=== PATIENT | male | born 1960 | race Caucasian/White ===

== ENCOUNTER 2019-03-04 12:46 | Inpatient (IN) | payer MEDICAID ==
[~2019-03-04] VITALS: Ht 180.3 cm; Wt 77.6 kg
[2019-03-04 12:50] VITALS: Ht 180.3 cm; Wt 77.6 kg
--- NOTE | 2019-03-04 13:35 | NUR ---
PT BIB SISTER TODAY WITH C/C FOR ALTERED. PT REPORTS THAT PT WAS PLACED ON ABILIFY "SHOTS" AND SINCE THEN HE BEGAN URINATING ON HIMSELF, "BEING NONVERBAL" AND "NOT ACTING RIGHT", "HE'S HITTING HIMSELF AND GAMBLING A LOT, AND BEING HYPERSEXUAL." SISTER REPORTS LONG HISTORY OF BIPOLAR DISORDER. PT'S SISTER RECENTLY BROUGHT HIM TO THE AREA TO LIVE WITH HER SO THAT SHE COULD GET A SECOND OPINION. MEANWHILE, SISTER HAS BEEN GIVING PT HER DAUGHTER'S ABILIFY RX TO HELP HELP WITH HIS "EPISODES." PT IS BLIND AND USES HEARING AIDS, WHEN SISTER GAVE PT HIS HEARING AID, HE PUT IT IN HIS MOUTH. PT'S SISTER STATED, "I WAS UNDER THE IMPRESSION THAT I COULD BRING HIM HERE AND HAVE HIM PLACED ON THAT 72-HOUR HOLD." EXPLAINED TO SISTER THE PROCESS OF A DOCTOR'S EVALUATION AND THE PROCESS OF PLACING A PT ON A 5150 HOLD. PT IS ORIENTED TO HIMSELF, AND ABLE TO TELL ME THAT HIS SISTER WAS HERE WITH HIM. PT ANSWERS SIMPLE QUESTIONS APPROPRIATELY, AND FOLLOWS COMMANDS APPROPRIATELY. PT DOES NOT APPEAR TO BE EXPERIENCING ANY AUDITORY OR VISUAL HALLUCINATIONS. ASKED PT, "DO YOU HAVE THOUGHTS OF HARMING YOURSELF?" AND "DO YOU HAVE THOUGHTS OF HURTING ANYONE ELSE?" PT REPLIED "NO" TO BOTH QUESTIONS. PT IS CALM AND COOPERATIVE, RESP E/U, NAD NOTED. AWAITING MSE.
[2019-03-04 14:21] LABS: BASOPHIL % 0.3 % (0-2); PLATELET COUNT 203 x10^3mcL (130-400); RED CELL DISTRIBUTION WIDTH 14.3 % (11.5-14.5)
--- NOTE | 2019-03-04 14:22 | NUR ---
AGENCY DOCUMENTATION DONE BY Staff Name/Title - : [address] JR/NATHANAEL [employer] User ID - : [id number] Agency Name - : [employer] Time Documented - From - : 699 To - : 1929
--- NOTE | 2019-03-04 14:23 | NUR ---
ASSUMED PATIENT CARE, CONCUR WITH PREVIOUS ASSESSMENTS.
[2019-03-04 14:32] LABS: CALCIUM 8.4 mg/dL (8.5-10.1); CARBON DIOXIDE 33.1 mmol/L (21-32); CHLORIDE SERUM 105 mmol/L (98-107); CREATININE SERUM 1.2 mg/dL (0.7-1.3); GFR1 > 60 mL/min; GLUCOSE SERUM 169 mg/dL (74-106); POTASSIUM SERUM 4.1 mmol/L (3.5-5.1); SODIUM SERUM 144 mmol/L (136-145)
[2019-03-04 14:44] LABS: microscopic required? YES; urine erythrocyte TRACE (NEGATIVE)
[2019-03-04 14:53] LABS: AMPHETAMINE QUAL UR NONE DETECTED (See below)
--- NOTE | 2019-03-04 18:23 | NUR ---
CURRENTLY AWAITING TELEPSYCH CONSULT. PER DIPPING MACHINE OPERATOR PATIENT IS ON THE LIST BUT TELEPSYCH IS BUSY AT THIS TIME. WILL CONTINUE TO MONITOR PATIENT, MEAL AND JUICES PROVIDED.
--- NOTE | 2019-03-04 19:15 | NUR ---
PATIENT SEEN SITTING IN THE BED WITH A VAGUE STARE, DOES NOT VERBALIZE, STATE HIS NAME WHEN ASKED.
--- NOTE | 2019-03-04 19:45 | NUR ---
TELE-PSYCH MD TRIED TO TALK TO THE PATIENT, PATIENT STSTE NAME WHEN ASKED, BUT KEPT STARING AT THE SCREEN AND IS NOT TALKING.
--- NOTE | 2019-03-04 20:18 | NUR ---
VITAL SIGNS RE-CHECK SAME IS STABLE , PATIENT IS STANDING IN THE HALLWAY, RE- DIRECTED TO THE ROOM. RESIDENT SEEN AT THE BEDSIDE TRYING TO TALK TO THE PATIENT.
[2019-03-04 20:33] LABS: MAGNESIUM 1.9 mg/dL (1.8-2.4)
[2019-03-04 20:34] LABS: CHOLESTEROL/HDL RATIO 3.6
--- NOTE | 2019-03-04 22:40 | NUR ---
PATIENT IS ADMITTED AND WAITING FOR A BED. PATIENT WAS GIVEN JUICE AND SANDWICH.
--- NOTE | 2019-03-04 23:20 | NUR ---
REPORT WAS GIVEN TO LOURDES.
--- NOTE | 2019-03-04 23:45 | NUR ---
PATIENT TRANSPORTED TO ROOM 236.
[2019-03-05 00:26] VITALS: BP 143/78
--- NOTE | 2019-03-05 00:58 | NUR ---
RECEIVED PT FROM ER, PT ADMIT FOR PSYCHOSIS, DEMENTIA, PT IS A/O X1, ONLY RESPOSNIVE TO NAME, LEFT EYE COMPLETE BLIND, NO REACT TO LIGHT, RIGHT EYE PARTIAL BLIND, REACT TO LIGHT [place], BUT PT ABLE TO TELL HOW MANY FINGER SHOW HIM DURING THE ASSESSMENT, [place] BOTH EARS, BUT ABLE TO FOLLOW SIMPLE COMMAND. LUNG SOUND CLEAR BILATERAL, NO COUGH, NO SOB, DENY ANY CHEST PAIN OR DISCOMFORT, BOWEL SOUND PRESENT ALL 4 QUADRANTS, NO DISTENTION, NO TENDER. PEDAL PULSE PRESENT BOTH FEET, NO EDEMA, IV AT LEFT HAND, NO LEAKING, NO INFILTRAITON. ALL ADLS ASSIST, ALL NEED MET, CALL LIGHT IN REACH, WILL CONTINUE TO MONITOR. SITTER AT BEDSIDE CLOSE TO MONITOR THE PT.
--- NOTE | 2019-03-05 01:00 | NUR ---
SPECIMEN FOR MRSA NARES COLLECTED AND SENT TO LAB. CALL LIGHT WITHIN REACH. NO S/S OF APIN/DISCOMFORT AT THIS TIME.
--- NOTE | 2019-03-05 04:40 | NUR ---
EKG RESULT IN,SEEN BY DR ARCOS, NO NER ORDERS GIVEN. NO S/S OF CHEST PAIN/DISCOMFORT. APPARENTLY COMFORTABLE IN BED.
[2019-03-05 05:49] VITALS: BP 103/65
--- NOTE | 2019-03-05 06:13 | NUR ---
APPARENTLY STILL ASLEEP. NO S/S OF PAIN/DISCOMFORT. RESPIRATION EVEN AND UNLABORED. NO S/S OF ACUTE DISTRESS.
--- NOTE | 2019-03-05 07:10 | NUR ---
RECEIVED REPORT FROM LOURDES PT IN BED IN NO ACUTE DISTRESS
--- NOTE | 2019-03-05 07:21 | NUR ---
PT IN BED, IN NO APPARENT PAIN/DISTRESS, VERBAL, ABLE TO MAKE NEEDS KNOWN, [place], BLIND TO (L) EYE, PARTIAL BLIND TO (R) EYE, NO FACIAL DROOP/SLUURED SPEECH, CALM AND COOPERATIVE AT THIS TIME, DENIED PAIN/CHAUDHARY/CP/PALPITATION, DENIED N/V/D, RESP EVEN, NO SOB/COUGH, MEDSURG, CHEST RISE SYMMETRICALLY, ABD FLAT AND NON-TENDER TO TOUCH, BS ACTIVE X 4, PALP PUSLES, CAP REFILL < 3S, SKIN C/D/W, SEE SKIN ASSESSMENT, IV PATENT AND FLUSHING WELL, DRESSING CDI, AMBULATORY, INCONTINENT AT TIME, REG DIET, ALL NEEDS ADDRESSED AT THIS TIME, SITTER 1:1 AT BEDSIDE, SAFETY PROTOCOL FOLLOWED, CONTINUE TO MONITOR
[2019-03-05 09:22] VITALS: BP 127/65
--- NOTE | 2019-03-05 11:48 | NUR ---
PT SLEEPING IN BED, IN NO ACUTE DISTRESS, SITTER AT BEDSIDE, CONTINUE TO MONITOR
--- NOTE | 2019-03-05 17:07 | NUR ---
VOID X 1, ASSISTED BACK TO BED, IN NO ACUTE DISTRESS, SITTER AT BEDSIDE, CONTINUE TO MONITOR
[2019-03-05 17:17] VITALS: BP 114/56
--- NOTE | 2019-03-05 17:55 | NUR ---
PT IN BED, PT PULLED OUT IV, IV CATH INTACT, NO ACTIVE BLEEDING NOTED, VERBAL, ABLE TO MAKE NEEDS KNOWN, IN NO ACUTE DISTRESS, RESP EVEN, NO SOB/COUGH, SITTER AT BEDSIDE, TOLERATED DINNER WELL, DENIED CP/PAIN/PALPITATION, DENIED N/V/D, SKIN C/D/W, ALL NEEDS ADDRESSED AT THIS TIME, SAFETY PROTOCOL FOLLOWED, WILL ENDROSE TO ONCOMING RN
--- NOTE | 2019-03-05 19:35 | NUR ---
RECIEVED PT RESTING AT BEDSIDE, ASSESMENT PERFORMED AT THIS TIME, PT IS A/OX1 TO PERSON, PT DENIES CHAUDHARY OR DIZZINESS AT THIS TIME, PT IS [place], AND IS BLIND IN ONE LEFT EYE AND PARTIALLY BLIND IN RIGHT, PT DENIES PAIN OR SOB AT THIS TIME, SITTER AT BEDSIDE, ALL NEEDS ATTENDED TO, SAFETY PRECAUTIONS IN PLACE, WILL CONTINUE TO MONITOR
[2019-03-05 20:14] VITALS: BP 112/57
--- NOTE | 2019-03-05 22:36 | NUR ---
PT RESTING IN BED WITH NO ACUTE DISTRESS, PT RESPONDS TO TACTILE SIMULI, PT DENIES PAIN OR SOB, SITTER AT BEDSIDE, SAFETY PRECAUTIONS IN PLACE WILL CONTINUE TO MONITOR
--- NOTE | 2019-03-06 00:43 | NUR ---
PT IN BED ON LEFT SIDE RESTING WITH EYES CLOSED, RESPIRATIONS UNLABORED, SITTER AT BEDSIDE, SAFETY PRECAUTIONS IN PLACE WILL CONTINUE TO MONITOR
--- NOTE | 2019-03-06 02:35 | NUR ---
PT RESTING IN BED WITH NO DISTRESS NOTED AT THIS TIME, PT IS RESTING ON LEFT SIDE, RESPIRATIONS EVEN AND UNLABORED, ALL NEEDS ATTENDED TO, SITTER AT BEDSIDE,SAFETY PRECAUTIONS IN PLACE, WILL COTNINUE TO MONITOR
--- NOTE | 2019-03-06 05:27 | NUR ---
PT REMAINIED IN BED THROUGH NIGHT WITH THE EXCEPTION OF AMBULATING TO THE RR TWICE TO VOID TWICE AND HAVE A BM, SITTER REMAINED AT BEDISDE THROUGH SHIFT, PT DENIED PAIN OR SOB THROUGH NIGHT, ALL NEEDS ATTENDED TO, SAFETY PRECAUTIONS IN PLACE, WILL COTNINUE TO MONITOR AMD ENDORSE CARE
[2019-03-06 05:56] VITALS: BP 130/78
--- NOTE | 2019-03-06 07:10 | NUR ---
RECEIVED REPORT FROM ISAC HUFFMAN AT BEDSIDE, PT IN BED IN NO ACUTE DISTRESS
--- NOTE | 2019-03-06 07:44 | NUR ---
PT IN BED, AWAKE, IN NO APPARENT PAIN/DISTRESS, VERBAL, ABLE TO MAKE NEEDS KNOWN, [place], BLIND TO (L) EYE, PARTIAL BLIND TO (R) EYE, NO FACIAL DROOP/SLUURED SPEECH, CALM AND COOPERATIVE AT THIS TIME, DENIED PAIN/CHAUDHARY/CP/PALPITATION, DENIED N/V/D, RESP EVEN, NO SOB/COUGH, MEDSURG, CHEST RISE SYMMETRICALLY, ABD FLAT AND NON-TENDER TO TOUCH, BS ACTIVE X 4, PALP PUSLES, CAP REFILL < 3S, SKIN C/D/W, SEE SKIN ASSESSMENT, AMBULATORY W/ ASSIST, INCONTINENT AT TIME, REG DIET, ALL NEEDS ADDRESSED AT THIS TIME, SITTER 1:1 AT BEDSIDE, SAFETY PROTOCOL FOLLOWED, CONTINUE TO MONITOR
[2019-03-06 08:05] VITALS: BP 113/73
--- NOTE | 2019-03-06 10:28 | NUR ---
PT SLEEPING IN BED, IN NO APPARENT DISTRESS/PAIN, SITTER 1:1 AT BEDSIDE, CONTINUE TO MONITOR
--- NOTE | 2019-03-06 13:47 | NUR ---
PT VISITED BY SISTER, PT IN BED IN NO ACUTE DISTRESS, SITTER AT BEDSIDE, CONTINUE TO MONITOR
--- NOTE | 2019-03-06 14:24 | NUR ---
SISTER WANTED TO TAKE PT HOME OR TO ANOTHER [facility], SISTER MADE AWARE PT WAS ON [address] SNELL, METEOROLOGICAL AIDE TIM LANDA TALKED TO SISTER, SISTER LEFT, PT IN BED IN NO ACUTE DISTRESS, CHARGE NURSE HONEY MADE AWARE
--- NOTE | 2019-03-06 17:14 | NUR ---
PT SLEEPING IN BED, IN NO APPARENT DISTRESS, NO FACIAL DROOP, RESP EVEN, NO SOB/COUGH, CHEST RISE SYMMETRICALLY, SKIN INTACT, SITTER AT BEDSIDE, ALL NEEDS ADDRESSED AT THIS TIME, SAFETY PROTOCOL FOLLOWED, WILL ENDORSE TO ONCOMING RN
[2019-03-06 17:20] VITALS: BP 107/78
[2019-03-06 19:30] VITALS: BP 120/72
--- NOTE | 2019-03-06 19:30 | NUR ---
PT RECIEVED FROM DAY NURSE. PT RESTING IN BED AT THIS TIME. DENIES PAIN OR DISCOMFORT. A/OX2, REORIENTED TO TIME AND SITUATION. PT MS, DENIES CP, NV, DIZZINESS, OR PALPATATIONS. PALPABLE PULSES, NO EDEMA NOTED. BREATHING E/U ON RA. DENIES SOB. ABD SOFT AND ROUND, DENIES PAIN TO PALPATION. GENERALIZED WEAKNESS, UP WITH ASSIST. NO IV ACCESS AT THIS TIME, PT REFUSES IV INSERTION. SITTER AT BEDSIDE. BED AT LOWEST POSITION. CALL LIGHT WITHIN REACH. WILL CONTINUE TO MONITOR.
--- NOTE | 2019-03-07 | NUR ---
PT RESTING IN BED AT THIS TIME. NO S/S OF PAIN OR DISTRESS NOTED. BREATHING E/U ON RA. NO SIGNS OF ACUTE DISTRESS NOTED AT THIS TIME. BED AT LOWEST POSITION. CALL LIGHT WITHIN REACH. WILL CONTINUE TO MONITOR.
[2019-03-07 04:50] VITALS: BP 105/55
--- NOTE | 2019-03-07 06:39 | NUR ---
PT RESTING IN BED AT THIS TIME. DENIES PAIN OR DISCOMFORT. BREATHING E/U ON RA. VSS. NO SIGNS OF ACUTE DISTRESS AT THIS TIME. ALL NEEDS AND CONCERNS ADDRESSED THIS SHIFT. BED AT LOWEST POSITION. CALL LIGHT WITHIN REACH. WILL ENDORSE TO DAY NURSE.
[2019-03-07 06:49] LABS: BASOPHIL % 0.4 % (0-2); PLATELET COUNT 193 x10^3mcL (130-400); RED CELL DISTRIBUTION WIDTH 14.4 % (11.5-14.5)
[2019-03-07 07:09] LABS: CALCIUM 8.9 mg/dL (8.5-10.1); CARBON DIOXIDE 32.3 mmol/L (21-32); CHLORIDE SERUM 104 mmol/L (98-107); CREATININE SERUM 1.3 mg/dL (0.7-1.3); GFR1 > 60 mL/min; GLUCOSE SERUM 145 mg/dL (74-106); POTASSIUM SERUM 4.3 mmol/L (3.5-5.1); SODIUM SERUM 143 mmol/L (136-145)
--- NOTE | 2019-03-07 07:30 | NUR ---
RECEIVED PATIENT IN BED WITH 1-1 BSITTER AT BEDSIDE. ALERT AND ORIENTED X 2, SLOW TO RESPONG AT TIMES. NO IV ACCESS. GENERALIZED WEAKNESS NOTED, PATIENT DOES AMBULATE WITH SLOW GAIT. RESP EVEN AND UNLABORED, LUNGS CLEAR. NO ACUTE DISTRESS NOTED. 1-1 SITTER AT BEDSIDE.
[2019-03-07 07:51] VITALS: BP 119/71
--- NOTE | 2019-03-07 13:44 | NUR ---
PATIENT REMAINS IN BED WITH 1-1 SITTER AT BEDSIDE. PATIENT CONTINUES TO EXHIBIT INAPPROPRATE BEHAVIOR. MASTURBATING AND WANTING TO KISS THE 1-1 SITTER WHO IS AT BEDSIDE. ALERT, CONFUSED. AMBULATED WITH SHIPPING ROOM HELPER IN THE HALLWAYS. TOLERATED WELL. NO CHANGE IN CONDITION NOTED.
--- NOTE | 2019-03-07 15:17 | NUR ---
Discount pharmacy card and list to low cost medical clinics given to patient by [place].
--- NOTE | 2019-03-07 15:40 | NUR ---
PATIENT IS IN BED, APPEARS TO BE RESTING. NO CHANGE IN CONDITION NOTED. 1-1 SITTER AT BEDSIDE.
[2019-03-07 15:41] VITALS: BP 113/77
--- NOTE | 2019-03-07 17:59 | NUR ---
PATIENT OOB AMBULATING WITH PAPER [place]E MACHINE TENDER IN THE HALLWAYS AT THIS TIME. NO CHANGE IN CONDITION NOTED. WILL CONTINUE TO MONITOR.
--- NOTE | 2019-03-07 19:40 | NUR ---
REC'D PT FROM DAY NURSE. PT SITTING ON CHAIR OUTSIDE THE ROOM. ORIENTED TO SELF AND PLACE. REORIENTED TO TIME AND SPECIFIC HOSPITAL. MUMBLED SPEECH. L EYE BLIND. R EYE PUPIL ROUND WITH UNEVEN EDGES AND REACTIVE TO LIGHT. ABLE TO FOLLOW COMMANDS. WITHDRAWN. MED SURG, NO TELE. NO S/SX OF CP. BREATHING EVEN/UNLABORED ON RA. ABD SOFT/FLAT/NONTENDER. VOIDING FREELY WITH EPISODES OF INCONTINENCE. MILD GEN WEAKNESS. SKIN INTACT. NO IV ACCESS. PT UNDER CLOSE OBSERVATION SITTING NEXT TO THE NURSING STATION. WILL CONTINUE TO MONITOR.
--- NOTE | 2019-03-07 20:05 | NUR ---
PT WALKING SLOWLY AROUND THE UNIT LOOKING FOR LILIA, PT'S SON. REORIENTED THAT HE IS IN THE HOSPITAL AND LILIA IS NOT CURRENTLY HERE. BROUGHT PT BACK TO CHAIR OUTSIDE HIS ROOM. PT REFUSED TO GO IN THE ROOM STATING "THAT ROOM IS DANGEROUS." PT SITTING ON THE CHAIR. PUDDING GIVEN.
[2019-03-07 20:24] VITALS: BP 130/76
--- NOTE | 2019-03-07 20:54 | NUR ---
ASSISTED PT TO BED. PT STILL LOOKING FOR LILIA. REORIENTED THE PT. CALL LIGHT WITHIN REACH, BED AT LOWEST POSITION, BED ALARM ON.
--- NOTE | 2019-03-08 00:14 | NUR ---
PT SITTING ON A CHAIR OUTSIDE HIS ROOM NEXT TO THE NURSING STATION. PT QUIET AND LOOKING AROUND. NO SIGNS OF DISTRESS. WILL CONTINUE TO MONITOR.
--- NOTE | 2019-03-08 00:24 | NUR ---
PT FALLING ASLEEP IN THE CHAIR. ASSISTED PT SAFELY BACK IN BED. CALL LIGHT WITHIN REACH, BED AT LOWEST POSITON. WILL CONTINUE TO MONITOR.
--- NOTE | 2019-03-08 02:09 | NUR ---
PT HAS BEEN GOING BACK AND FORTH BETWEEN BED AND CHAIR. PT CURRENTLY SLEEPING IN THE CHAIR. UNDER CLOSE OBSERVATION.
--- NOTE | 2019-03-08 05:10 | NUR ---
PT RESTING IN BED WITH EYES CLOSED. LAYING ON L SIDE. NO SIGNS OF DISTRESS OR PAIN NOTED. BREATHING EVEN/UNLABORED ON RA. NO SIGNIFICANT CHANGES DURING SHIFT. CALL LIGHT WITHIN REACH, BED AT LOWEST POSITION. WILL CONTINUE TO MONITOR.
[2019-03-08 05:29] VITALS: BP 123/69
--- NOTE | 2019-03-08 05:51 | NUR ---
PT AWAKE AND GETTING OUT OF BED. CHANGED INTO HIS REGULAR CLOTHES AND PUT SHOES ON. PT AWARE HE IS IN THE HOSPITAL. CURRENTLY SITTING ON A CHAIR OUTSIDE HIS ROOM NEXT TO THE NURSE'S STATION.
[2019-03-08 06:49] LABS: CARBON DIOXIDE 33.3 mmol/L (21-32); CHLORIDE SERUM 103 mmol/L (98-107); CREATININE SERUM 1.2 mg/dL (0.7-1.3); GFR1 > 60 mL/min; GLUCOSE SERUM 105 mg/dL (74-106); POTASSIUM SERUM 4.1 mmol/L (3.5-5.1); SODIUM SERUM 142 mmol/L (136-145)
[2019-03-08 06:54] LABS: BASOPHIL % 0.4 % (0-2); PLATELET COUNT 191 x10^3mcL (130-400); RED CELL DISTRIBUTION WIDTH 14.4 % (11.5-14.5)
--- NOTE | 2019-03-08 07:10 | NUR ---
RECIEIVED PT FROM NIGHT NURSE. PT IS SITTING IN BEDSIDE CHAIR IN HALLWAY NEAR NURSES STATION. PT LOOKS TO BE IN NO ACUTE DISTRESS AT THIS TIME AND DENIES ANY PAIN. NO IV ACCESS. RESPIRATIONS EVEN AND UNLABORED ON ROOM AIR. PT EASILY MONITORED FROM NURSES STATION. WILL CONTINUE TO MONITOR.
[2019-03-08 07:59] VITALS: BP 123/68
--- NOTE | 2019-03-08 10:15 | NUR ---
PT STANDING OUT FRONT OF ROOM ASKING FOR THE NURSE. PT LOOKS UPSET AND STATES THAT HE "GOOFED UP" POINTING TO THE BATHROOM. LOOKED IN BATHROOM AND NO SIGNS OF ANYTHING OF DISCORDER. PT SEEMS UPSET, REASSURED PT AND ASKED PT IF HE WOULD LIKE TO SIT IN HALLWAY ON CHAIR, PT STATED THAT HE WOULD LIKE THAT. ASSISTED PT TO CHAIR IN HALLWAY OUTSIDE OF ROOM AND COVERED PT IN BLANKET, PT STATED HE FELT BETTER AND LOOKS TO BE IN NO ACUTE DISTRESS AT THIS TIME. WILL CONTINUE TO MONITOR.
[2019-03-08 11:52] VITALS: BP 124/70
--- NOTE | 2019-03-08 12:39 | NUR ---
PT IS SITTING AT THE EDGE OF THE BED EATING. PT LOOKS TO BE IN NO ACUTE DISTRESS AND LOOKS TO HAVE NO DIFFULTY EATING. CALL LIGHT WITHIN REACH. WILL CONTINUE TO MONITOR.
--- NOTE | 2019-03-08 13:08 | NUR ---
PT SITTING IN CHAIR IN HALLWAY [facility] STATION. PT LOOKS TO BE IN NO ACUTE DISTRESS AT THIS TIME. WILL CONTINUE TO MONITOR.
--- NOTE | 2019-03-08 15:07 | NUR ---
PHYSICAL THERAPY DAILY NOTES CO-SIGN All documentation done by the Window Unit Air Conditioning Mechanic for 03/08/19 has been reviewed. I agree with the documentation. Reviewed/Co-Signed by: Adriana Arellano PT Documentation Done by:YO MCKAY PTA
[2019-03-08 16:12] VITALS: BP 131/89
--- NOTE | 2019-03-08 16:14 | NUR ---
PT SITTING IN BEDSIDE CHAIR IN HALLWAY AND LOOKS TO BE TIRED AND FALLING ASLEEP. ASKED PT IF HE WOULD LIKE TO GO BACK INTO ROOM TO GO TO SLEEP IN THE BED. PT STATED THAT HE IS AFRAID TO BE IN THE ROOM BY HIMSELF. ASKED PT IF HE WOULD FEEL BETTER IF SOMEONE WAS IN THE ROOM WITH HIM WHILE HE SLEEPS, PT STATED THAT WOULD MAKE HIM FEEL BETTER. PT MADE COMFORTABLE IN BED AND IS LAYING DOWN IN BED. NURSE AT BEDSIDE. WILL CONTINUE TO MONITOR.
--- NOTE | 2019-03-08 18:36 | NUR ---
PT IS LAYING DOWN IN BED RESTING WITH EYES CLOSED. PT LOOKS TO BE IN NO ACUTE DISTRESS AT THIS TIME. RESPIRATIONS EVEN AND UNLABORED ON ROOM AIR. BED IN LOWEST POSITION, CALL LIGHT WITHIN REACH. WILL ENDORSE TO ONCOMING SHIFT.
--- NOTE | 2019-03-08 18:43 | NUR ---
PT LIGHTS ARE OFF AND PT IS SITTING UP IN BED AND IS SHAKING HANDS AND DOING DIFFERENT HAND GESTURES. GRABBED PT'S HAND AND ASKED HIM TO SQUEEZE HAND, PT FOLLOWED COMMAND. ASKED PT IF HE KNEW WHERE HE WAS, PT REPLIED WITH HOSPITAL, PT ABLE TO STATE NAME. PT STATED HE WOULD LIKE TO SIT IN THE CHAIR IN THE HALLWAY WITH A BLANKET. ASSISTED PT TO HALLWAY. PT EASILY SEEN FROM NURSES STATION, PT LOOKS TO BE IN NO ACUTE DISTRESS AT TIME. WILL ENDORSE TO ONCOMING SHIFT.
--- NOTE | 2019-03-08 19:15 | NUR ---
RECEIVED PT FROM PREVIOUS SHIFT NURSE. PT AOX2. ORIENTED TO NAME AND PLACE. MED SURG PT, DENIES CP/PRESSURE. DENIES SOB/DIFFICULTY BREATHING, ON RA. GEN WEAKNESS. AMBULATORY, SLOW SHUFFLE. NO IV ACCESS. BED IN LOWEST POSITION. CALL LIGHT WITHIN REACH. WILL CONTINUE TO MONITOR.
[2019-03-08 21:26] VITALS: BP 131/76
--- NOTE | 2019-03-09 02:30 | NUR ---
PT RESTING IN BED. RR EVEN AND UNLABORED. IN NO ACUTE DISTRESS. CALL LIGHT WITHIN REACH. BED IN LOWEST POSITION. WILL CONTINUE TO MONITOR.
[2019-03-09 06:11] VITALS: BP 122/80
[2019-03-09 07:38] LABS: CALCIUM 9.2 mg/dL (8.5-10.1); CARBON DIOXIDE 35.4 mmol/L (21-32); CREATININE SERUM 1.4 mg/dL (0.7-1.3); POTASSIUM SERUM 4.5 mmol/L (3.5-5.1)
[2019-03-09 09:40] VITALS: BP 124/78
--- NOTE | 2019-03-09 15:11 | NUR ---
PHYSICAL THERAPY DAILY NOTES CO-SIGN All documentation done by the Person Investigator for 03/09/19 has been reviewed. I agree with the documentation. Reviewed/Co-Signed by: Adriana Arellano PT Documentation Done by:YO MCKAY PTA
[2019-03-09 16:35] VITALS: BP 109/57
--- NOTE | 2019-03-09 19:19 | NUR ---
REPORT GIVEN TO VIDEO PHOTOGRAPHER NURSE AT THE BEDSIDE, PATIENT RESTING WITH EYES CLOSED DURING REPORT, CHEST RISE AND FALL OBSERVED, CARE ENDORSED
--- NOTE | 2019-03-09 19:59 | NUR ---
PT. SLEEPING, EASY TO WAKE. ORIENTED TO SELF AND PLACE. ABLE TO FOLLOW COMMANDS. ABLE TO MAKE NEEDS KNOWN. SPEECH CLEAR, SLOW. SITTER AT BEDSIDE. PT. W/ HX OF DEMENTIA. BREATH SOUNDS CLEAR THROUGHOUT LUNG LAMA, RESP. EVEN, UNLABORED. NO SOB NOTED. PT. ON RA. PEDAL PULSES STRONG BLE. NO EDEMA NOTED. NO IV ACCESS. ABD. SOFT AND FLAT, BOWEL SOUNDS ACTIVE. BED LOW LAYING. PT. IN FULL VIEW OF NURSES' STATION.
[2019-03-09 21:23] VITALS: BP 121/71
--- NOTE | 2019-03-09 23:55 | NUR ---
PT. SLEEPING AT THIS TIME. COOPERATIVE W. CARE THUS FAR. SITTER REMAINS AT BEDSIDE.
[2019-03-10 05:55] VITALS: BP 123/72
--- NOTE | 2019-03-10 06:46 | NUR ---
PHYSICAL THERAPY NOTE PATIENT DEMONSTRATES BASELINE FUNCTIONAL MOBILITY AT THIS TIME. D/C FROM PHYSICAL THERAPY FOLLOW UP VISITS. END TO NSG FOR ALL MOBILITY AND ADL NEEDS.
--- NOTE | 2019-03-10 06:49 | NUR ---
PT. AWAKE, WALKING HALLWAY WITH SITTER. COOPERATIVE W/ CARE THROUGHOUT THE NIGHT. NO DELUSIONAL EPISODES NOTED. WILL ENDORSE PT. CARE TO INCOMING NURSE.
--- NOTE | 2019-03-10 07:05 | NUR ---
RCD REPORT FROM NATHANAEL WRIGHT. PATIENT SITTING IN CHAIR, NO DISTRESS NOTED, SITTER NEAR PATIENT. PER KYLE, PATIENT HAS NO IV ACCESS, MD AWARE WITH NO NEED OR ORDER TO START. WILL MONITOR.
--- NOTE | 2019-03-10 07:55 | NUR ---
SHIFT ASSESSMENT PERFORMED AND DOCUMENTED. SITTER AT BEDSIDE. PATIENT SOMEWHAT RESTLESS WHILE LYING IN BED, ORIENTED TO PERSON AND KNOWS HE IS IN A HOSPITAL. MUMBLING SPEECH. FOLLOWS SOME SIMPLE COMMANDS, DIRECTABLE. PT REPORTS NO PAIN, NO ACUTE DISTRESS. WILL MONITOR.
[2019-03-10 10:20] VITALS: BP 115/70
--- NOTE | 2019-03-10 10:55 | NUR ---
PATIENT ASLEEP, REGULAR RESPS, SITTER AT BEDSIDE, BED LOW. WILL MONITOR.
--- NOTE | 2019-03-10 13:00 | NUR ---
PATIENT SITTING UP IN CHAIR, NO DISTRESS NOTED.
[2019-03-10] MEDS ORDERED: SEROQUEL25 MG PO (13:29)
[2019-03-10 13:39] VITALS: BP 123/72
--- NOTE | 2019-03-10 15:00 | NUR ---
DISCHARGE ORDER IN PLACE. ATTEMPTED TO CALL SISTER, NO ANSWER, VOICE MESSAGE LEFT. WILL TRY AGAIN LATER.
[2019-03-10 16:55] VITALS: BP 119/55
--- NOTE | 2019-03-10 17:05 | NUR ---
ATTEMPTED TO CALL SISTER BY NUMBER ON FACESHEET [phone] THREE TIMES, NO ANSWER AND VOICE MESSAGES LEFT. PRIMARY RN AND TARUN MANUEL MADE AWARE.
--- NOTE | 2019-03-10 17:48 | NUR ---
SISTER DARREN RETURNED CALL. INFORMED HER OF PATIENT MEDICALLY CLEARED TO GO HOME TODAY. SISTER STATES "I DONT AGREE WITH THE DOCTOR'S PUTTING HIM ON SEROQUEL, HE DOESN'T ACT LIKE HIMSELF" INFORMED HER OF PATIENT'S CURRENT BEHAVIOR AND IF SHE WOULD LIKE TO COME BY AND VISIT WITH HIM. SISTER BEGAN YELLING "OKAY BITCH, DONT TELL ME WHAT---I WAS THERE LAST THURSDAY FUCKING TELLING EVERYONE---YOU ALL ARE FUCKING IDIOTS---IM NOT GOING THERE WHILE HE IS ON THAT FUCKING MEDICATION---SEROQUEL DOESNT FUCKING WORK FOR HIM" WHEN ASKING HER TO CLARIFY THAT SHE IS NOT WILLING TO TAKE THE PATIENT HOME, PATIENT STATES "I REFUSE TO TAKE HIM HOME IF HE'S ON SEROQUEL---FUCKING IDIOTS DONT HAVE ANY IDEA..." SISTER HUNG UP. TARUN MANUEL MADE AWARE, PRIMARY RN MADE AWARE.
--- NOTE | 2019-03-10 17:50 | NUR ---
PATIENT SITTING UP ON SIDE OF BED. NO DISTRESS NOTED. SITTER AT BEDSIDE.
--- NOTE | 2019-03-10 19:24 | NUR ---
REPORT GIVEN TO NATHANAEL FREED. PATIENT LYING SUPINE, REGULAR RESPS, NO ACUTE DISTRESS. SITTER AT BEDSIDE. BED LOW, CARE ENDORSED.
--- NOTE | 2019-03-10 19:49 | NUR ---
RECEIVED AWAKE IN BED TRYING TO GET OUT OF BED, ISTRUCTED PATIENT TO INFORM SITTER ANY ASSISTANCE NEEDED, PT HAS HARD OF HEARING WITH BLINDNESS. NEEDS FREQUENT VERBAL CUES FOR SAFETY. SKIN WARM AND DRY TO TOUCH. RESPIRATION EVEN AND UNLABORED. NO S/S OF ACUTE DISTRESS. SITTER AT BEDSIDE.
[2019-03-10 20:03] VITALS: BP 112/71
--- NOTE | 2019-03-11 00:01 | NUR ---
PT KEEPS ON GETTING OUT OF BED WITHOPUT ASSISTANCE. WITH JUSTIN POOR SAFETY AWARENESS. ICU STAFF DOING 1;1 OBSERVATION TO THE PATIENT, STILL KEEPS ON GOING ON AND OFF TO BED, BED ALARM INTAVT AND FUNCTIONING WELL. AMBULATED TO BATHROOM FOR PERSONAL NEEDS, KEPT CLEAN AND DRY.
--- NOTE | 2019-03-11 05:32 | NUR ---
PT NEEDS FREQUENT VERBAL CUES FOR SAFETY, VERY FORGETFUL AND RESTLESS. ASSISTED TO ABTHROOM FOR PERSONAL NEEDS, KEPT CLEAN AND DRY. ALL NEEDS ATTENDED.
[2019-03-11 06:08] VITALS: BP 110/61
--- NOTE | 2019-03-11 07:10 | NUR ---
RECEIVED PT FROM NIGHT NURSE. PT SITTING UP AT EDGE OF THE BED. PT LOOKS TO BE IN NO ACUTE DISTRESS AT THIS TIME AND DENIES ANY PAIN. NO IV ACCESS AT THIS TIME. RESPIRATIONS EVEN AND UNLABORED ON ROOM AIR. PT AMBULATORY. BED IN LOWEST POSITION, CALL LIGHT WITHIN REACH. SITTER AT BEDSIDE. WILL CONTINUE TO MONITOR.
[2019-03-11 08:19] VITALS: BP 104/69
--- NOTE | 2019-03-11 10:00 | NUR ---
PT REQUESTING TO AMBULATE AROUND UNIT. WALKED WITH PT AROUND UNIT, PT ABLE TO AMBULATE WITHOUT ASSISTANCE, GAIT SLOW AND STEADY. PT IS NOW SITTING IN BEDSIDE CHAIR IN HALLWAY IN VIEW OF NURSES STATION AND SITTER. PT LOOKS TO BE IN NO ACUTE DISTRESS AT THIS TIME. WILL CONTINUE TO MONITOR.
[2019-03-11 11:39] VITALS: BP 110/65
[2019-03-11 16:49] VITALS: BP 116/67
--- NOTE | 2019-03-11 18:45 | NUR ---
PT IS SITTING IN BEDSIDE CHAIR IN ROOM. PT LOOKS TO BE IN NO ACUTE DISTRESS AT THIS TIME AND DENIES ANY PAIN. RESPIRATIONS EVEN AND UNLABORED ON ROOM AIR. NO IV SITE AT THIS TIME. CALL LIGHT WITHIN REACH. SITTER AT BEDSIDE. WILL ENDORSE TO ONCOMING SHIFT.
--- NOTE | 2019-03-11 20:00 | NUR ---
RECEIVED PT IN BED, A/O X2, CONFUSED, ABLE TO FOLLOW SOME SIMPLE COMMANDS. SITTER AT THE BEDSIDE FOR SAFETY. RESP. EVEN AND UNLABORED. LUNG SOUNDS CLEAR BILAT. ON ROOM AIR, NO ACUTE DISTRESS NOTED. NO COMPLAINTS NOTED AT THIS TIME. NO IV ACCESS. VOIDS FREELY. CALL LIGHT WITHIN REACH. WILL CONTINUE TO MONITOR.
[2019-03-11 20:50] VITALS: BP 107/56
--- NOTE | 2019-03-12 01:39 | NUR ---
EYES CLOSED, APPEARS ASLEEP, EASILY AROUSABLE. RESP. EVEN AND UNLABORED. NO ACUTE DISTRESS NOTED. SITTER AT THE BEDSIDE FOR SAFETY. WILL CONTINUE TO MONITOR.
[2019-03-12 05:05] VITALS: BP 109/67
--- NOTE | 2019-03-12 06:09 | NUR ---
SLEPT MOST OF THE NIGHT. NO COMPLAINTS NOTED. NO AGITATION NOTED. SITTER AT THE BEDSIDE FOR SAFETY. AFEBRILE AND VITAL SIGNS STABLE. RESP. EVEN AND UNLABORED. NO ACUTE DISTRESS NOTED. KEPT COMFORTABLE. WILL CONTINUE TO MONITOR.
[2019-03-12 07:17] VITALS: BP 127/74
--- NOTE | 2019-03-12 07:20 | NUR ---
RECEIVED PT FROM NIGHT NURSE. PT IS USING THE RESTROOM AT THIS TIME. PT LOOKS TO BE IN NO ACUTE DISTRESS AT THIS TIME. RESPRIATIONS EVEN AND UNLABORED ON ROOM AIR. NO IV ACCESS AT THIS TIME. SITTER AT BEDSIDE. WILL CONTINUE TO MONITOR.
[2019-03-12 12:05] VITALS: BP 120/71
--- NOTE | 2019-03-12 14:25 | NUR ---
PT IS SITTING IN HALLWAY IN CHAIR. PT LOOKS TO BE IN NO ACUTE DISTRESS AT THIS TIME. WITHIN VIEW OF SITTER. WILL CONTINUE TO MONITOR.
[2019-03-12 16:15] VITALS: BP 124/72
--- NOTE | 2019-03-12 16:21 | NUR ---
PT IS LAYING DOWN IN BED. PT LOOKS TO BE IN NO ACUTE DISTRESS AT THIS TIME AND DENIES ANY PAIN. RESPIRATIONS EVEN AND UNLABORED ON ROOM AIR. CALL LIGHT WITHIN REACH. SITTER AT BEDSIDE. WILL CONTINUE TO MONITOR.
--- NOTE | 2019-03-12 18:47 | NUR ---
PT IS SITTING UP AT THE EDGE OF THE BED. PT LOOKS TO BE IN NO ACUTE DISTRESS AT THIS TIME AND DENIES ANY PAIN. RESPIRATIONS EVEN AND UNLABORED ON ROOM AIR. NO IV SITE AT THIS TIME, DR. TODD. CALL LIGHT WITHIN REACH, SITTER AT BEDSIDE. WILL ENDORSE TO ONCOMING SHIFT.
--- NOTE | 2019-03-12 20:00 | NUR ---
RECEIVED PT IN BED, AWAKE AND ALERT. CONFUSED, WITH SITTER AT THE BEDSIDE FOR SAFETY. ABLE TO FOLLOW SIMPLE COMMANDS. RESP. EVEN AND UNLABORED. LUNG SOUNDS CLEAR BIALT. ON ROOM AIR, NO ACUTE DISTRESS NOTED. AFEBRILE AND VITAL SIGNS STABLE. DENIES PAIN OR ANY DISCOMFORT AT THIS TIME. VOIDING FREELY. WILL CONTINUE TO MONITOR.
[2019-03-12 22:40] VITALS: BP 123/72
--- NOTE | 2019-03-13 01:45 | NUR ---
RESTING QUIETLY IN BED, WITH EYES CLOSED. APPEARS ASLEEP, EASILY AROUSABLE. SITTER AT THE BEDSIDE FOR SAFETY. WILL CONTINUE TO MONITOR.
--- NOTE | 2019-03-13 06:24 | NUR ---
SLEPT WELL. NO COMPLAINTS NOTED. NO AGITATION NOTED. SITTER AT THE BEDSIDE FOR SAFETY. AFEBRILE AND VITAL SIGNS STABLE. KEPT COMFORTABLE. WILL CONTINUE TO MONITOR.
[2019-03-13 06:44] VITALS: BP 118/70
--- NOTE | 2019-03-13 07:04 | NUR ---
RECEIVED PT FROM NIGHT NURSE. PT IS SITTING AT EDGE OF THE BED. PT LOOKS TO BE IN NO ACUTE DISTRESS AT THIS TIME AND DENIES ANY PAIN. RESPIRATIONS EVEN AND UNLABORED ON ROOM AIR. NO IV SITE AT THIS TIME. BE IN LOWEST POSITION, CALL LIGHT WITHIN REACH, SITTER AT BEDSIDE. WILL CONTINUE TO MONITOR.
[2019-03-13 08:40] VITALS: BP 113/68
--- NOTE | 2019-03-13 09:45 | NUR ---
PT IS SITTING IN CHAIR IN HALLWAY IN VIEW OF NURSES STATION AND SITTER. PT REQUESTING TO SIT WITH A BLANKET, PT STATES THAT HE LIKES TO SIT IN THE HALLWAY SINCE HIS ROOM IS "SCAREY" PT LOOKS TO BE IN NO ACUTE DISTRESS AT THIS TIME. SITTER WITH PT, WILL CONTINUE TO MONITOR.
--- NOTE | 2019-03-13 10:30 | NUR ---
PT BACK IN BED AND LOOKS TO BE IN NO ACUTE DISTRESS AT THIS TIME. SITTER AT BEDSIDE, CALL LIGHT WITHIN REACH. WILL CONTINUE TO MONITOR.
--- NOTE | 2019-03-13 14:00 | NUR ---
PT IS SITTING IN CHAIR IN HALLWAY. PT LOOKS TO BE IN NO ACUTE DISTRESS AT THIS TIME. PT IN VIEW OF NURSES STATION AND IS SITTING WITH SITTER. WILL CONTINUE TO MONITOR
--- NOTE | 2019-03-13 15:30 | NUR ---
Initial Nutrition Assessment Dx: Psychosis, Dementia PMHx: Paranoid Schizophrenia, Blindness and Deafness PSHx: Unknown Labs: (03/09) No new labs since. BG 121H, BUN 24H, Cr 1.4H Meds: Tylenol Colace, Zofran, Seroquel Diet: Regular PO intake since admission: PO 40-100%, mostly 100% x 7 days Ht: 71" Wt: 171# (77.5 kg) BMI: 23.8 (WNL) Bed scale: pt. not in bed; unable to obtain bedscale weight IBW: 172# %IBW: 100% UBW: Unknown Age: 58 y/o male Food Allergies: NKFA Skin: Intact Ric: 19 Edema: None GI: Last BM: x 1 today Pt. with extensive psychiatric history per H and P documentations. Placement is pending at this time. RD Note: Pt with sitter at bedside; pt. sitting outside of room. Good appetite and good tolerance to diet order w/o GI distress today. Variable appetite at times. Otherwise, no nutritional concerns at this time. Problem with: N/V/D/C: N Problems with: Chewing: N Swallowing: N Current appetite: Good Recent wt change: None Vitamin/Supplement use: None Special diet at home: Regular Physical activity: None on a regular basis Nutrition education given (specify specific nutrition education and handout given): No diet education provided during visit. Pt. encouraged to ask any questions regarding healthy/general diet when they arise. Estimated Nutritional Needs Based on current body weight (77.5 kg) Energy: 7402-3458 kcal/day (23-25 kcal/kg for maintenance factors) Protein: 62-76 g/day (0.8-1.0 g/kg for maintenance factors) Fluid: 3529-4996 mL/day (1 mL/kcal) Nutrition Diagnosis: 1. Potential food and drug interaction r/t medication regimen AEB pt. taking psychotropic medications with potential side effects affecting nutritional status. Intervention 1. Continue regular diet as ordered and as tolerated. PO intake meeting >75% estimated need at this time. Monitor/Evaluate Goal: PO intake at least 75% of estimated needs Monitor: PO intake, GI function F/U in 7 days as low risk (03/20)
--- NOTE | 2019-03-13 15:32 | NUR ---
Intervention 1. Continue regular diet as ordered and as tolerated. PO intake meeting >75% estimated need at this time.
[2019-03-13 15:53] VITALS: BP 115/69
--- NOTE | 2019-03-13 18:26 | NUR ---
PT IS SITTING AT THE EDGE OF THE BED. PT LOOKS TO BE IN NO ACUTE DISTRESS AT THIS TIME AND DENIES ANY PAIN. RESPRIATIONS EVEN AND UNLABORED ON ROOM AIR. NO IV ACCESS AT THIS TIME. BED IN LOWEST POSITION, CALL LIGHT WITHIN REACH, SITTER AT BEDSIDE. WILL ENDORSE TO ONCOMING SHIFT.
[2019-03-13 19:02] VITALS: BP 115/48
--- NOTE | 2019-03-13 19:05 | NUR ---
RECEIVED REPORT FROM JOSE J HUFFMAN. ASSUMING ALL CARE
--- NOTE | 2019-03-13 19:15 | NUR ---
RECEIVED REPORT FROM MANISHA HUFFMAN. ASSUMING ALL CARE
--- NOTE | 2019-03-13 19:30 | NUR ---
RECEIVED PT LAYING IN BED. PT IS A/OX2, KNOWS HIS NAME AND CURRENT YEAR. CONFUSED AT TIMES. PT ABLE TO FOLLOW SIMPLE COMMANDS. EENT FREE OF DISCHARGE. 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 PT IS [place]. BREATHING IS E/U ON RA. LUNGS SOUND CLEAR BILAT. SYMMETRICAL CHEST EXPANSION NOTED. MED-SURG PT. S1/S2 HEART SOUNDS AUSCULTATED. CHEST WALL EQUAL AND SYMMETRICAL. NO S/S OF CP NOTED. PALPABLE PULSEES X4 EXTREMITIES. SKIN IS WARM AND DRY. NO EDEMA NOTED. PT HAS NO IV ACCESS. CAP REFILL < 3 SECS. COLOR CONSISTENT WITH ETHNICITY. GENERALIZED WEAKNESS. NO JOINT SWELLING/DEFORMITY NOTED. PT WITH SHUFFLING SLOW GAIT. PT IS ON REGULAR DIET. NO N/V NOTED. ABD IS SOFT, FLAT, NONTENDER TO PALPATION. BOWEL SOUNDS ACTIVE X4 QUADRANTS. NO BM NOTED. PT VOIDS FREELY VIA URINAL. PT IS INCONTINENT AT TIMES. NO SCROTAL EDEMA/PENILE DISCHARGE NOTED. SKIN IS INTACT. PT ABLE TO REPOSITION SELF INDEPENDENTLY. PT IS CURRENTLY CALM. PT PARANOID AT TIMES. SITTER AT BEDSIDE. BED IN LOW POSITION. CALL LIGHT IN REACH. WILL CONT TO MONITOR
--- NOTE | 2019-03-13 20:53 | NUR ---
PT AMBULATED TO THE RESTROOM WITH A STEADY GAIT
--- NOTE | 2019-03-13 23:05 | NUR ---
PT IS SLEEPING, EASILY ARSOUSABLE. RISE AND FALL OF CHEST NOTED. NO S/S OF ACUTE DISTRESS NOTED. SITTER AT BEDSIDE. BED IN LOW POSITION. WILL CONT TO MONITOR.
--- NOTE | 2019-03-14 02:35 | NUR ---
PT IS SITTING UP IN BED AWAKE/ALERT. DENIES ANY PAIN. NO S/S OF DISTRESS NOTED. SITTER AT BEDSIDE. WILL CONT TO MONITOR
[2019-03-14 05:31] VITALS: BP 120/62
[2019-03-14 05:33] VITALS: BP 157/77
--- NOTE | 2019-03-14 05:45 | NUR ---
PT IS SLEEPING, EASILY AROUSABLE. RISE AND FALL OF CHEST SYMMETRIC. NO S/S OF ACUTE DISTRESS NOTED. SITTER AT BEDSIDE. WILL CONT TO MONITOR
--- NOTE | 2019-03-14 07:05 | NUR ---
REPORT GIVEN TO DAVEY HUFFMAN. ALL QUESTIONS/CONCERNS ADDRESSED. ENDORSING ALL CARE
--- NOTE | 2019-03-14 07:30 | NUR ---
THE PATIENT AWAKE BUT ORIENTED TO SELF WITH SLOW SPEECH. PATIENT HAS EPISODES OF CONFUSION. NO IV ACCESS NOTED. PATIENT DENIES SHORTNESS OF BREATH, NAUSEA/VOMITING OR PAIN AT THIS TIME. PATIENT STATED BLIND TO LEFT EYE AND VERY POOR VISION TO RIGHT EYE. ALSO [place] NOTED. PATIENT IS SITTING AT BEDSIDE AFTER WALKING SOME STEPS IN THE ROOM. CALL LIGHT WITHIN REACH. SIDE RAILS UP X3. BED IS AT LOWEST POSITION. THE STAFF IS AT BEDSIDE TO ASSIST THE PATIENT NEEDED.
[2019-03-14 08:56] VITALS: BP 123/72
--- NOTE | 2019-03-14 10:45 | NUR ---
THE PATIENT'S SISTER, HERRERA ARNOLD CAME TO PICK THE PATIENT UP. DISCHARGE INSTRUCTION WENT OVER WITH HERRERA BUT SHE REFUSED TO SIGN THE DISCHARGE PAPER AND ASKED THE PATIENT TO SIGN THE PAPER. THE PATIENT WAS TAKEN TO THE LOBBY VIA WHEELCHAIR IN STABLE CONDITION. ALL BELONGINGS SENT HOME WITH THE PATIENT UPON DISCHARGE.
--- NOTE | 2019-03-14 13:17 | NUR ---
THE GENERAL UTILITY WORKER AND I, MYSELF HAVE BEEN CALLING THE PATIENT'S SISTER, DARREN ARNOLD SEVERAL TIMES TO NOTIFY HER THAT THE PRESCRIPTION FOR SEROQUEL IS READY FOR [facility]. HOWEVER, DARREN DOES NOT ANSWER THE PHONE AND UNABLE TO LEAVE THE VOICE MESSAGE BECAUSE THE MAILBOX IS FULL.
--- NOTE | 2019-03-14 14:54 | NUR ---
CALLING THE PATIENT'S SISTER- CATALINA; SHE ANSWERED THE PHONE AND WAS NOTIFIED THAT THE PRECRIPTION FOR SEROQUEL IS READY. IF SHE COULD NOT [employer] THE PRESCRIPTION THEN PLEASE PROVIDE THE CLOSEST PHARMACY ADDRESS THAT SHE COULD PICK THE MED FOR THE PATIENT, BUT SHE DID NOT PROVIDE THE ADDRESS AND SAID, "YOU NEED TO GO BACK TO YOUR COUNTRY." ALSO, CATALINA HAS BEEN CURSING THE STAFF INCLUDING ME WHENEVER SHE NEEDED TO COMMUNICATE.
--- NOTE | 2019-03-14 15:05 | NUR ---
THE TRANSFER MAN, GERBER AND THE CHARGE NURSE WERE AWARE OF WHAT HAS HAPPENED.
== END 2019-03-14 10:45 | disposition home health service (06) | DRG 757 ==
LOC: ED 12:46 → MU 19:53
PROVIDERS: Emergency Medicine; Internal Medicine; ADMIT General Practice
DX: F03.90 Unspecified dementia, unspecified severity, without behavioral disturbance, psychotic disturbance, mood disturbance, and anxiety (principal); F30.2 Manic episode, severe with psychotic symptoms; E78.5 Hyperlipidemia, unspecified
CPT/HCPCS: 83880; 97110-GP; 97112-GP; 97116-GP; 97530-GP; G0378; G0480